=== PATIENT | male | born 1955 | race African-American/Black ===

== ENCOUNTER → 2017-03-20 | Outpatient (CLI) | payer BC ==
[~2017-03-20] MED LIST: AMINOPHYLLINE 250 MG/10 ML VIAL. ONE; REGADENOSON 0.4 MG/5 ML DISP.SYRIN. IV ONE
--- NOTE | 2017-03-22 18:32 | PCVCIMAG ---
APPROVED REPORT Exam: Nuclear Stress Test Indication: Chest pain, Dyspnea Patient Location: Out-Patient Stress Nurse: Aimee Baer RN, SHELL [place] Tech:Maame Ortiz [facility] Ht: 5 ft 5 in Wt: 165 lbs BSA: 1.82 m2 HR: 107 bpm BP: 176/100 mmHg BMI: 27.4 Rhythm: ST W/ LVH Medical History Medical History: HTN, Hyperlipidemia, COPD, CHF, Current Smoker, Age Medications: ASA, Atorvastatin, Demedex, Losartan, Carvedilol Allergies: No known drug allergies Pretest Chest Pain Characteristics: No chest pain Exercise History: Indeterminate Physical Disabilities: Legs Meds Held (24 hrs): Carvedilol NM EXAM: Myocardial Perfusion REST/STRESS Imaging Protocol: Rest Tc-99m/Stress Tc-99m 1 day Resting Data Rest SPECT myocardial perfusion imaging was performed in supine position 45 minutes following the intravenous injection of 10.3 mCi of Tc-99m Sestamibi. Time of rest injection: 0930 Date: 03/20/2017 Administration Route: IV Administration Site: Right Arm Pharmacologic Stress Pharmacologic stress test was performed by injecting Regadenoson 0.4 mg IV push followed by the intravenous injection of 32.7 mCi of Tc-99m Sestamibi. Time of stress injection: 1040 Date: 03/20/2017 Administration Route: IV Administration Site: Right Arm Gated Stress SPECT was performed 45 minutes after stress injection. The images were gated to evaluate regional wall motion and calculate left ventricular ejection fraction. Perfusion There is a large area of moderately reduced uptake in the entire segment of the inferior wall which is seen on the stress images as well as the resting images. This area is hypokinetic and is most consistent with ischemia or myocardial scar. Nuclear Conclusion 1. INTERMEDIATE RISK STUDY Interpreted by: Jordan Sinha MD Electronically Approved: 03/22/2017 18:31:57 Stress Test Details Stress Test: Pharmacologic stress was paired with low level exercise. Reason for pharmacologic stress test: physical limitation. Reversal agent Aminophyline 100 mg, given intravenously for dyspnea and light-headedness. HR Resting HR: 107 bpmMax Heart Rate (APMHR): 161 bpm Max HR Achieved: 136 bpmTarget HR (85% APMHR): 136 bpm % of APMHR: 84 Recovery HR: 115 bpm BP Resting BP: 176/100 mmHg Max BP: 191/82 mmHg ECG Resting ECG: Sinus Tachycardia, LVH Stress ECG: Sinus Tachycardia, LVH Recovery ECG: Sinus Tachycardia, LVH Clinical Reason for Termination: Dyspnea, Fatigue Stress Symptoms: Dyspnea, light-headedness Exercise duration: 2 min 30 sec Exercise capacity: 1.6 METs Symptoms resolved during recovery with aminophylline. Stress ECG Conclusion 1. ADEQUATE RESPONSE TO IV LEXISCAN 2. INADEQUATE HEART RATE RESPONSE FOR ECG DIAGNOSIS <Conclusion> 1. ADEQUATE RESPONSE TO IV LEXISCAN 2. INADEQUATE HEART RATE RESPONSE FOR ECG DIAGNOSIS
== END | disposition home or self-care (01) ==
LOC: PCVCIMAG 08:53
PROVIDERS: ATTEND Internal Medicine
DX: R07.9 Chest pain, unspecified (principal); R06.00 Dyspnea, unspecified; I11.0 Hypertensive heart disease with heart failure; J44.9 Chronic obstructive pulmonary disease, unspecified; I50.9 Heart failure, unspecified; F17.200 Nicotine dependence, unspecified, uncomplicated
CPT/HCPCS: 78452; 93017; A9500; J0280; J2785